=== PATIENT | male | born 1970 | race Caucasian/White ===

== ENCOUNTER 2017-10-19 12:13 | Emergency (ER) | payer OTHER ==
[~2017-10-19] VITALS: Ht 175.3 cm; Wt 79.4 kg
[2017-10-19] MEDS ORDERED: SUCCINYLCHOLINE CHLORIDE 20 MG/ML 10ML VIAL IV ONE (12:20)
[2017-10-19] MEDS ORDERED: ETOMIDATE (2MG/ML) 20ML VIAL IV ONE (12:20)
[2017-10-19] MEDS ORDERED: MIDAZOLAM DRIP 50 mg/50mL 50 ML IV SCH ×2 (12:28→12:49)
[2017-10-19] MEDS ORDERED: PROPOFOL 100 ML IV ONE (12:39)
[2017-10-19 12:45] VITALS: BP 127/88
[2017-10-19] MEDS ORDERED: PROPOFOL 100 ML IV SCH (12:49)
== END 2017-10-19 12:56 | disposition short-term general hospital (02) ==
LOC: ER 12:13
DX: S02.2XXA Fracture of nasal bones, initial encounter for closed fracture (principal); X58.XXXA Exposure to other specified factors, initial encounter; Y93.89 Activity, other specified; Y92.89 Other specified places as the place of occurrence of the external cause; Y99.8 Other external cause status
CPT/HCPCS: 31500; 99291; J2704